=== PATIENT | female | born 1985 | race Caucasian/White ===

== ENCOUNTER 2019-01-17 21:47 | Emergency (ER) | payer OTHER ==
[~2019-01-17] VITALS: Ht 160 cm; Wt 71.2 kg
--- NOTE | 2019-01-17 22:06 | NUR ---
PT TAKEN TO BED 9
--- NOTE | 2019-01-17 22:11 | NUR ---
Dr. Veliz evaluating patient at bedside.
--- NOTE | 2019-01-17 22:11 | NUR ---
PT PRESENTS TO ED WITH RASH. SEEN AT BEDSIDE BY DR CAMPBELL. C/O ITCHING. 0/10 PAIN. VSS. CONTINUE TO MONITOR.
[2019-01-17 22:28] VITALS: BP 112/86
--- NOTE | 2019-01-17 22:28 | NUR ---
DISCHARGE PAPERS GIVEN TO PT. 0/10 PAIN WITH VSS. DISCHARGE INSTRUCTIONS PROVIDED BY DR CAMPBELL. PT VERBALLIZED UNDERSTANDING OF DC INSTRUCTION WHEN TO F/U AND WHEN TO RETURN TO ER. RX OF PREDNISONE GIVEN. SIDE EFFECTS EXPLAINED. ALL QUESTIONS ANSWERED.
== END 2019-01-17 22:28 | disposition home or self-care (01) ==
LOC: MED 21:47
DX: L30.9 Dermatitis, unspecified (principal)
CPT/HCPCS: 99283

== ENCOUNTER 2019-08-11 05:02 | Emergency (ER) | payer OTHER ==
[~2019-08-11] VITALS: Ht 160 cm; Wt 68.0 kg
[2019-08-11 05:05] VITALS: BP 120/75
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
--- NOTE | 2019-08-11 05:05 | NUR ---
TO BED # 08 AMBULATORY
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
--- NOTE | 2019-08-11 06:53 | NUR ---
PATIENT IS SITTING QUIETLY IN BED. WILL CONTINUE TO MONITOR.
[2019-08-11 07:10] VITALS: BP 120/75
== END 2019-08-11 07:10 | disposition home or self-care (01) ==
LOC: MED 05:02
DX: S01.21XA Laceration without foreign body of nose, initial encounter (principal); Y04.8XXA Assault by other bodily force, initial encounter; Y93.89 Activity, other specified; Y92.89 Other specified places as the place of occurrence of the external cause; Y99.8 Other external cause status
CPT/HCPCS: 12011; 70160; 99283; Q0092; 12001

== ENCOUNTER 2021-03-26 17:17 | Emergency (ER) | payer OTHER ==
[~2021-03-26] VITALS: Ht 160 cm; Wt 74.8 kg
[2021-03-26 17:19] VITALS: BP 145/90
--- NOTE | 2021-03-26 17:24 | NUR ---
Patient ambulated with steady gait to bed 4.
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
[2021-03-26] MEDS ORDERED: KETOROLAC 30 MG/ML VIAL IM ONE (17:40)
--- NOTE | 2021-03-26 17:43 | NUR ---
us at bedside
--- NOTE | 2021-03-26 18:18 | NUR ---
X-RAY TECH AT BEDSIDE AT THIS TIME.
[2021-03-26 18:22] VITALS: BP 145/90
--- NOTE | 2021-03-26 19:13 | NUR ---
REPORT RECEIVED FROM JORDAN DIXON FOR CONTINUITY OF CARE.
--- NOTE | 2021-03-26 19:14 | NUR ---
Dr. Cabral examining patient.
[2021-03-26] MEDS ORDERED: RIVA15TA1 PO (19:25)
[2021-03-26] MEDS ORDERED: CYCL-711 PO (19:26)
[2021-03-26] MEDS ORDERED: ACET-10509 PO (19:26)
--- NOTE | 2021-03-26 19:31 | NUR ---
Patient discharged with v/s stable. Written and verbal after care instructions given and explained. Patient alert, oriented and verbalized understanding of instructions. Ambulatory with steady gait. All questions addressed prior to discharge. ID band removed. Patient advised to follow up with PMD. Rx of TLYENOL EXTRA STRENGTH, FLEXERIL, XARELTO given. Patient educated on indication of medication including possible reaction and side effects. Opportunity to ask questions provided and answered. WORK NOTE PROVIDED ALONG WITH RESULTS FROM ULTRASOUND.
== END 2021-03-26 19:31 | disposition home or self-care (01) ==
LOC: MED 17:17
DX: I82.402 Acute embolism and thrombosis of unspecified deep veins of left lower extremity (principal); Z88.8 Allergy status to other drugs, medicaments and biological substances; Z79.899 Other long term (current) drug therapy
CPT/HCPCS: 73590; 93971; 96372; 99284; J1885

== ENCOUNTER 2021-04-12 22:19 | Emergency (ER) | payer OTHER ==
[~2021-04-12] VITALS: Ht 160 cm; Wt 72.6 kg
[~2021-04-12 22:19] MED LIST: ACET-10509 PO; CYCL-711 PO; RIVA15TA1 PO
[2021-04-12 22:20] VITALS: BP 135/100
--- NOTE | 2021-04-12 22:23 | NUR ---
TO LOBBY A/W BED AMBULATORY
--- NOTE | 2021-04-13 00:58 | NUR ---
PT AMBULATED TO BED 11
[2021-04-13] MEDS ORDERED: ACET-8386 PO (01:34)
[2021-04-13 01:40] VITALS: BP 141/68
--- NOTE | 2021-04-13 01:40 | NUR ---
d/c with VSS. d/c education given. opportunity toask questions given and answered. rx of norco given.
== END 2021-04-13 01:40 | disposition home or self-care (01) ==
LOC: MED 22:19
DX: M25.472 Effusion, left ankle (principal); M25.475 Effusion, left foot; Z88.8 Allergy status to other drugs, medicaments and biological substances; Z79.899 Other long term (current) drug therapy; X58.XXXA Exposure to other specified factors, initial encounter; Y93.89 Activity, other specified; Y92.89 Other specified places as the place of occurrence of the external cause; Y99.8 Other external cause status
CPT/HCPCS: 73610; 99283

== ENCOUNTER 2021-04-16 14:38 | Emergency (ER) | payer OTHER ==
[~2021-04-16] VITALS: Ht 160 cm; Wt 72.6 kg
[~2021-04-16 14:38] MED LIST changes: +ACET-8386 PO
[2021-04-16 14:59] VITALS: BP 144/92
--- NOTE | 2021-04-16 15:45 | NUR ---
[facility] Written and verbal after care instructions given and explained. Patient verbalized understanding. Ambulatory with steady gait. All questions addressed prior to discharge. Advised to follow up with PMD.
== END 2021-04-16 15:45 | disposition home or self-care (01) ==
LOC: MED 14:38
DX: I82.492 Acute embolism and thrombosis of other specified deep vein of left lower extremity (principal); Z79.899 Other long term (current) drug therapy; Z88.8 Allergy status to other drugs, medicaments and biological substances
CPT/HCPCS: 99281